=== PATIENT | female | born 2000 | race Two or more races ===

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

== ENCOUNTER 2025-02-13 11:08 | Outpatient (CLI) | payer OTHER ==
[~2025-02-13 11:08] MED LIST changes: +LEVETIRACETAM500 MG PO
== END 2025-02-13 11:09 | disposition home or self-care (01) ==
LOC: PRENATAL 11:08
PROVIDERS: ATTEND Obstetrics & Gynecology Maternal & Fetal Medicine
DX: O44.00 Complete placenta previa NOS or without hemorrhage, unspecified trimester (principal); O34.219 Maternal care for unspecified type scar from previous cesarean delivery; Z3A.19 19 weeks gestation of pregnancy

== ENCOUNTER 2025-02-15 22:02 | Emergency (ER) | payer OTHER ==
[~2025-02-15] VITALS: Ht 154.9 cm; Wt 77.1 kg
[2025-02-15] MEDS ORDERED: KEPPRA750 MG (22:09)
[2025-02-15 23:30] LABS: HEMATOCRIT 34.9 % (36.0-45.00); HEMOGLOBIN 12.1 g/dL (12.0-15.00); MEAN CELL VOLUME 88.4 fL (80.00-100.00); MEAN CORPUSCULAR HEMOGLOBIN 30.6 pg (27.00-32.0); MEAN CORPUSCULAR HGB CONC 34.7 g/dl (32.0-36.0); PLATELET COUNT 247 K/uL (150-450); RED BLOOD COUNT 3.95 M/uL (4.00-6.00); RED CELL DISTRIBUTION WIDTH 13.6 % (11.5-14.5)
[2025-02-15 23:50] LABS: CALCIUM 9.2 mg/dL (8.5-10.1); CREATININE SERUM 0.48 mg/dL (0.55-1.02); GFR 158.89; POTASSIUM 3.86 mEq/L (3.5-5.1)
[2025-02-16 00:27] LABS: PH,URINE 6.5 (5.0-8.0); URINE APPEARANCE Cloudy; URINE BILIRRUBIN Negative (NEGATIVE); URINE BLOOD Negative; URINE COLOR Yellow; URINE GLUCOSE Negative (NEGATIVE); URINE KETONE Trace (NEGATIVE); URINE LEUKOCYTE Moderate; URINE NITRATE Positive; URINE PROTEIN Negative (NEGATIVE)
[2025-02-16 00:31] LABS: URINE CAST 2.79 uL (0.0-1.40); URINE EPITHELIAL CELLS 26.4 uL (0.0-38.8); URINE RBC 10.9 uL (0.0-20.8); URINE WBC 309.8 uL (0.0-23.2)
[2025-02-16 01:13] LABS: URINE BACTERIA > 9821.5 uL (0.0-1933)
== END 2025-02-16 01:27 | disposition home or self-care (01) ==
LOC: ER 22:03
PROVIDERS: Emergency Medicine
DX: Z34.90 Encounter for supervision of normal pregnancy, unspecified, unspecified trimester (principal); R53.81 Other malaise; B82.9 Intestinal parasitism, unspecified

== ENCOUNTER 2025-03-26 20:17 | Emergency (ER) | payer OTHER ==
[~2025-03-26] VITALS: Ht 154.9 cm; Wt 76.7 kg
[~2025-03-26 20:17] MED LIST changes: +KEPPRA750 MG
[2025-03-26] MEDS ORDERED: METOCLOPRAMIDE HCL 5 MG/ML VIAL IM STA (23:29)
[2025-03-26] MEDS ORDERED: 0.9 % SODIUM CHLORIDE 1,000 ML IV STA (23:30)
[2025-03-26] MEDS ORDERED: FAMOtidine 10 MG/ML (4ML VIAL) IV PUSH STA (23:31)
[2025-03-26] MEDS ORDERED: METOCLOPRAMIDE HCL 5 MG/ML VIAL ONE (23:41)
[2025-03-26] MEDS ORDERED: FAMOTIDINE/PF 20 MG/2 ML VIAL ONE (23:41)
[2025-03-27 00:11] LABS: BASO % 0.4 % (0.1-1.2); EOS # 0.17 (0.04-0.54); EOS % 1.6 % (0.7-7.0); HEMATOCRIT 33.9 % (34.1-44.9); HEMOGLOBIN 11.4 g/dL (11.2-15.7); LYMPH # 2.73 (1.18-3.74); LYMPH % 25.8 % (19.3-53.1); MEAN CORPUSCULAR HEMOGLOBIN 29.7 pg (25.6-32.2); MONO # 0.53 (0.24-0.82); NEUT # 6.99 (1.56-6.13); NEUT % 66.2 % (34.0-71.1); PLATELET COUNT 278 K/uL (163-369); RED BLOOD COUNT 3.84 M/uL (3.93-5.22); RED CELL DISTRIBUTION WIDTH 13.3 % (11.6-14.4)
[2025-03-27 00:58] LABS: ALBUMIN 2.9 gm/dL (3.4-5.0); BILIRUBIN TOTAL 0.42 mg/dL (0.3-1.2); CALCIUM 8.8 mg/dL (8.5-10.1); CREATININE SERUM 0.57 mg/dL (0.55-1.02); GFR 130.31; GLOBULINA 4.4 G/DL (2.4-3.5); POTASSIUM 3.81 mEq/L (3.5-5.1); TOTAL PROTEIN 7.3 gm/dL (6.4-8.2)
[2025-03-27] MEDS ORDERED: ONDANSETRON ODT8 MG PO (02:09)
[2025-03-27] MEDS ORDERED: PEPCID40 MG PO (02:09)
== END 2025-03-27 02:18 ==
LOC: ER 20:36
DX: K29.70 Gastritis, unspecified, without bleeding (principal)

== ENCOUNTER 2025-03-29 01:17 | Emergency (ER) | payer OTHER ==
[~2025-03-29] VITALS: Ht 154.9 cm; Wt 77.6 kg
[~2025-03-29 01:17] MED LIST changes: +ONDANSETRON ODT8 MG PO; +PEPCID40 MG PO
[2025-03-29] MEDS ORDERED: RINGERS SOLUTION,LACTATED 1,000 ML IV STA (02:06)
[2025-03-29] MEDS ORDERED: FAMOtidine 10 MG/ML (4ML VIAL) IV PUSH STA (02:08)
[2025-03-29] MEDS ORDERED: METOCLOPRAMIDE HCL 5 MG/ML VIAL IM STA (02:08)
[2025-03-29 02:59] LABS: BASO % 0.3 % (0.1-1.2); EOS # 0.12 (0.04-0.54); EOS % 1.2 % (0.7-7.0); HEMATOCRIT 31.8 % (34.1-44.9); HEMOGLOBIN 10.8 g/dL (11.2-15.7); LYMPH # 2.16 (1.18-3.74); LYMPH % 21.8 % (19.3-53.1); MEAN CORPUSCULAR HEMOGLOBIN 29.6 pg (25.6-32.2); MONO # 0.65 (0.24-0.82); MONO % 6.6 % (4.7-12.5); NEUT % 68.6 % (34.0-71.1); PLATELET COUNT 251 K/uL (163-369); RED BLOOD COUNT 3.65 M/uL (3.93-5.22); RED CELL DISTRIBUTION WIDTH 13.2 % (11.6-14.4)
[2025-03-29 03:22] LABS: ALBUMIN 2.7 gm/dL (3.4-5.0); BILIRUBIN TOTAL 0.38 mg/dL (0.3-1.2); CALCIUM 8.7 mg/dL (8.5-10.1); CREATININE SERUM 0.53 mg/dL (0.55-1.02); GFR 141.72; GLOBULINA 4.3 G/DL (2.4-3.5); POTASSIUM 3.93 mEq/L (3.5-5.1)
== END 2025-03-29 05:45 | disposition home or self-care (01) ==
LOC: ER 01:24
DX: Z34.90 Encounter for supervision of normal pregnancy, unspecified, unspecified trimester (principal); Z3A.26 26 weeks gestation of pregnancy; R11.10 Vomiting, unspecified

== ENCOUNTER 2025-04-11 07:26 | Outpatient (CLI) | payer OTHER | END 2025-04-11 07:27 | disposition home or self-care (01) | LOC: PRENATAL 07:26 | PROVIDERS: ATTEND Obstetrics & Gynecology Maternal & Fetal Medicine | DX: O26.849 Uterine size-date discrepancy, unspecified trimester (principal); O34.219 Maternal care for unspecified type scar from previous cesarean delivery; O99.019 Anemia complicating pregnancy, unspecified trimester; Z3A.28 28 weeks gestation of pregnancy ==

== ENCOUNTER 2025-05-21 19:40 | Outpatient (CLI) | payer OTHER ==
[2025-05-21 18:11] VITALS: BP 110/72
[2025-05-21 18:41] VITALS: BP 110/72
[~2025-05-21 19:40] MED LIST changes: -KEPPRA1000 MG PO; -KEPPRA500 MG PO; -PEPCID AC20 MG PO; -PROTONIX40 MG PO
[2025-05-21] MEDS ORDERED: RINGERS SOLUTION,LACTATED 1,000 ML IV SCH (19:45)
[2025-05-21] MEDS ORDERED: KEPPRA500 MG PO ×2 (19:47)
[2025-05-21] MEDS ORDERED: PROTONIX40 MG PO (19:47)
[2025-05-21] MEDS ORDERED: PEPCID AC20 MG PO (19:48)
[2025-05-21] MEDS ORDERED: FAMOTIDINE/PF 20 MG/2 ML VIAL IV PRN (20:00)
[2025-05-21 20:12] LABS: URINE APPEARANCE Turbid; URINE BILIRRUBIN Negative (NEGATIVE); URINE BLOOD Large; URINE COLOR Dark Yellow; URINE GLUCOSE Negative (NEGATIVE); URINE KETONE Negative (NEGATIVE); URINE LEUKOCYTE Large; URINE NITRATE Positive; URINE PROTEIN 30 (NEGATIVE); URINE UROBILINOGEN 1.0 E.U./dl
[2025-05-21 20:15] LABS: URINE CAST 3.63 uL (0.0-1.40); URINE EPITHELIAL CELLS 142.7 uL (0.0-38.8); URINE RBC 9209.3 uL (0.0-20.8); URINE WBC 879.9 uL (0.0-23.2)
[2025-05-21 20:18] LABS: BASO % 0.2 % (0.1-1.2); EOS # 0.12 (0.04-0.54); EOS % 1.4 % (0.7-7.0); LYMPH # 2.15 (1.18-3.74); LYMPH % 25.8 % (19.3-53.1); MEAN PLATELET VOLUME 10.00 fl (9.4-12.4); MONO # 0.43 (0.24-0.82); MONO % 5.2 % (4.7-12.5); NEUT # 5.47 (1.56-6.13); NEUT % 65.6 % (34.0-71.1); RED CELL DISTRIBUTION WIDTH 13.2 % (11.6-14.4)
[2025-05-21 20:36] LABS: URINE BACTERIA > 9821.5 uL (0.0-1933); URINE TRICHOMONAS MODERATE
[2025-05-21] MEDS ORDERED: LevETIRAcetam 500 MG TAB. PO SCH ×2 (21:00)
[2025-05-21] MEDS ORDERED: CEFAZOLIN SODIUM 1,000 MG VIAL IV SCH (21:22)
[2025-05-21 23:15] VITALS: BP 117/72
[2025-05-22 04:08] VITALS: BP 116/72
[2025-05-22 06:13] VITALS: BP 96/59; O2SAT 97
[2025-05-22] MEDS ORDERED: SOD FERRIC GLUC COMPLX/SUCROSE 125 MG in 0.9 % SODIUM CHLORIDE 100 ML IV SCH (09:55)
[2025-05-22 11:09] VITALS: BP 96/58
[2025-05-22] MEDS ORDERED: SOD FERRIC GLUC COMPLX/SUCROSE 62.5 MG/5 ML AMPUL IV ONE (12:45)
[2025-05-22 13:56] VITALS: BP 96/58
[2025-05-22] MEDS ORDERED: KEPPRA 750 MG PO SCH (21:00)
[2025-05-26] MEDS ORDERED: KEPPRA1000 MG PO ×2 (13:04)
== END 2025-05-22 14:07 | disposition home or self-care (01) ==
LOC: OBS/DEL 19:40
PROVIDERS: ATTEND Obstetrics & Gynecology
DX: O46.93 Antepartum hemorrhage, unspecified, third trimester (principal); R10.9 Unspecified abdominal pain; Z3A.36 36 weeks gestation of pregnancy

== ENCOUNTER → 2025-05-21 | Emergency (ER) | payer OTHER ==
[~2025-05-21] VITALS: Ht 154.9 cm; Wt 79.8 kg
[~2025-05-21] MED LIST changes: +KEPPRA1000 MG PO; +KEPPRA500 MG PO; +PEPCID AC20 MG PO; +PROTONIX40 MG PO
== END | disposition left against medical advice (07) ==
LOC: ER 17:28
DX: Z53.21 Procedure and treatment not carried out due to patient leaving prior to being seen by health care provider (principal)

== ENCOUNTER 2025-06-06 16:51 | Emergency (ER) | payer OTHER ==
[~2025-06-06] VITALS: Ht 154.9 cm; Wt 81.6 kg
[~2025-06-06 16:51] MED LIST changes: +KEPPRA1000 MG PO; +KEPPRA500 MG PO; +PEPCID AC20 MG PO; +PROTONIX40 MG PO
[2025-06-06] MEDS ORDERED: ONDANSETRON HCL 2 MG/ML VIAL ONE (17:21)
[2025-06-06] MEDS ORDERED: 0.9 % SODIUM CHLORIDE 1,000 ML IV STA (17:21)
[2025-06-06] MEDS ORDERED: ONDANSETRON HCL 2 MG/ML VIAL IV STA (17:21)
[2025-06-06 17:49] LABS: BASO % 0.4 % (0.1-1.2); EOS # 0.04 (0.04-0.54); EOS % 0.5 % (0.7-7.0); LYMPH # 1.97 (1.18-3.74); LYMPH % 25.1 % (19.3-53.1); MEAN PLATELET VOLUME 9.90 fl (9.4-12.4); MONO # 0.36 (0.24-0.82); MONO % 4.6 % (4.7-12.5); NEUT # 5.38 (1.56-6.13); NEUT % 68.5 % (34.0-71.1); RED CELL DISTRIBUTION WIDTH 14.1 % (11.6-14.4)
[2025-06-06 17:55] LABS: URINE APPEARANCE Cloudy; URINE BACTERIA 7390.5 uL (0.0-1933); URINE BILIRRUBIN Negative (NEGATIVE); URINE COLOR Dark Yellow; URINE EPITHELIAL CELLS 58.3 uL (0.0-38.8); URINE GLUCOSE Negative (NEGATIVE); URINE LEUKOCYTE Large; URINE NITRATE Positive; URINE PROTEIN Trace (NEGATIVE); URINE RBC 7.3 uL (0.0-20.8); URINE UROBILINOGEN 1.0 E.U./dl; URINE WBC 404.4 uL (0.0-23.2)
[2025-06-06 18:08] LABS: BUN CREA RATIO 16.0 (7.0-25.0); CREATININE SERUM 0.55 mg/dL (0.55-1.02); GFR 135.79; GLUCOSE FASTING 72.0 mg/dL (65-100); OSMOLALITY SERUM 277.0 MOSM/KG (275-295)
[2025-06-06 18:18] LABS: URINE CAST 0.87 uL (0.0-1.40); URINE KETONE >=160 (NEGATIVE)
[2025-06-06 18:19] LABS: URINE BLOOD Trace; URINE MUCUS MODERATE
[2025-06-06 18:20] LABS: TYPE CELLS SQUAMOUS
[2025-06-06] MEDS ORDERED: FAMOTIDINE/PF 20 MG in 0.9 % SODIUM CHLORIDE 8 ML IV PUSH STA (21:29)
[2025-06-06] MEDS ORDERED: FAMOTIDINE/PF 20 MG/2 ML VIAL ONE (21:29)
== END 2025-06-06 21:39 | disposition home or self-care (01) ==
LOC: ER 16:51
PROVIDERS: Emergency Medicine
DX: O21.9 Vomiting of pregnancy, unspecified (principal); O23.43 Unspecified infection of urinary tract in pregnancy, third trimester; N39.0 Urinary tract infection, site not specified; Z3A.37 37 weeks gestation of pregnancy

== ENCOUNTER 2025-06-10 14:09 | Outpatient (CLI) | payer OTHER | END 2025-06-10 14:10 | disposition home or self-care (01) | LOC: PRENATAL 14:09 | PROVIDERS: ATTEND Obstetrics & Gynecology Maternal & Fetal Medicine | DX: O26.849 Uterine size-date discrepancy, unspecified trimester (principal); O36.8199 Decreased fetal movements, unspecified trimester, other fetus; O34.219 Maternal care for unspecified type scar from previous cesarean delivery; Z3A.36 36 weeks gestation of pregnancy ==

== ENCOUNTER 2025-06-18 21:41 | Inpatient (IN) | payer OTHER ==
[2025-06-17 23:56] VITALS: BP 115/74
[~2025-06-18] VITALS: Ht 154.9 cm; Wt 2.7 kg
[2025-06-18 21:28] VITALS: BP 112/74
[2025-06-18] MEDS ORDERED: RINGERS SOLUTION,LACTATED 1,000 ML IV SCH (22:30)
[2025-06-18 22:41] LABS: URINE APPEARANCE Clear; URINE BACTERIA 3943.9 uL (0.0-1933); URINE BILIRRUBIN Negative (NEGATIVE); URINE BLOOD Negative; URINE COLOR Yellow; URINE EPITHELIAL CELLS 25.3 uL (0.0-38.8); URINE GLUCOSE Negative (NEGATIVE); URINE KETONE Negative (NEGATIVE); URINE LEUKOCYTE Large; URINE NITRATE Positive; URINE PROTEIN Negative (NEGATIVE); URINE UROBILINOGEN 0.2 E.U./dl; URINE WBC 332.9 uL (0.0-23.2)
[2025-06-18 22:44] LABS: URINE CAST 0.14 uL (0.0-1.40); URINE RBC 1.9 uL (0.0-20.8)
[2025-06-18] MEDS ORDERED: ZOFRAN8 MG (22:50)
[2025-06-18 23:14] LABS: BASO % 0.3 % (0.1-1.2); EOS # 0.08 (0.04-0.54); EOS % 0.8 % (0.7-7.0); LYMPH # 2.44 (1.18-3.74); LYMPH % 25.7 % (19.3-53.1); MEAN PLATELET VOLUME 11.30 fl (9.4-12.4); MONO # 0.51 (0.24-0.82); MONO % 5.4 % (4.7-12.5); NEUT # 6.28 (1.56-6.13); NEUT % 66.3 % (34.0-71.1); RED CELL DISTRIBUTION WIDTH 14.2 % (11.6-14.4)
[2025-06-18 23:29] LABS: INR 0.96
[2025-06-18 23:32] VITALS: BP 115/74
[2025-06-18] MEDS ORDERED: CEFAZOLIN SODIUM 1,000 MG VIAL ONE (23:55)
[2025-06-18 23:56] VITALS: BP 112/74
[2025-06-19] MEDS ORDERED: ERYTHROMYCIN BASE OPHT 1GM EACH TUBE OP ONE (00:05)
[2025-06-19] MEDS ORDERED: OXYTOCIN 10 UNITS/ML VIAL ONE (00:05)
[2025-06-19 00:44] LABS: ALT/SGPT 13.0 U/L (12-78); AST/SGOT 12.0 U/L (15-37); BILIRUBIN TOTAL 0.52 mg/dL (0.3-1.2); BUN CREA RATIO 14.0 (7.0-25.0); CREATININE SERUM 0.44 mg/dL (0.55-1.02); GFR 175.68; GLOBULINA 3.4 G/DL (2.4-3.5); GLUCOSE FASTING 72.0 mg/dL (65-100); OSMOLALITY SERUM 272.0 MOSM/KG (275-295)
[2025-06-19] MEDS ORDERED: CEFAZOLIN SODIUM 1,000 MG VIAL IV SCH (00:45)
[2025-06-19] MEDS ORDERED: KETOROLAC TROMETHAMINE 60 MG VIAL IM STA (02:16)
[2025-06-19] MEDS ORDERED: OXYTOCIN 1,000 ML IV SCH (02:30)
[2025-06-19] MEDS ORDERED: CHLORHEXIDINE GLUCONATE 120 ML BOTTLE TOP ONE (02:30)
[2025-06-19] MEDS ORDERED: MORPHINE SULFATE 4 MG/ML VIAL IV PRN (02:30)
[2025-06-19] MEDS ORDERED: RINGERS SOLUTION,LACTATED 1,000 ML IV SCH (02:30)
[2025-06-19 04:30] VITALS: BP 111/74
[2025-06-19 06:13] LABS: BASO % 0.4 % (0.1-1.2); EOS # 0.07 (0.04-0.54); EOS % 0.6 % (0.7-7.0); LYMPH # 2.52 (1.18-3.74); LYMPH % 22.2 % (19.3-53.1); MEAN PLATELET VOLUME 10.10 fl (9.4-12.4); MONO # 0.51 (0.24-0.82); MONO % 4.5 % (4.7-12.5); NEUT # 8.13 (1.56-6.13); NEUT % 71.4 % (34.0-71.1); RED CELL DISTRIBUTION WIDTH 14.4 % (11.6-14.4)
[2025-06-19] MEDS ORDERED: OxyCODONE HCL 5 MG TABLET (ROXICODONE) PO PRN (09:00)
[2025-06-19] MEDS ORDERED: ACETAMINOPHEN 325 MG TABLET PO PRN (09:00)
[2025-06-19 09:28] VITALS: BP 113/72
[2025-06-19 16:07] VITALS: BP 112/75
[2025-06-20 00:30] VITALS: BP 111/70
[2025-06-20 08:53] VITALS: BP 109/75
[2025-06-20 16:24] VITALS: BP 115/77
[2025-06-21 00:05] VITALS: BP 116/78
[2025-06-21 04:00] VITALS: BP 118/74
[2025-06-21 08:02] VITALS: BP 106/69
== END 2025-06-21 12:23 | disposition home or self-care (01) | DRG 788 ==
LOC: OBS/DEL 21:41 → LDR 06-19 00:01 → OB/GYN 06-19 00:01
PROVIDERS: ADMIT Obstetrics & Gynecology; ATTEND Obstetrics & Gynecology
PROC: 4A1HXCZ Monitoring of Products of Conception, Cardiac Rate, External Approach (ICD-10-PCS; 2025-06-19)
PROC: 10D00Z1 Extraction of Products of Conception, Low, Open Approach (ICD-10-PCS; principal; 2025-06-19 07:00)
DX: O34.211 Maternal care for low transverse scar from previous cesarean delivery (principal); Z3A.38 38 weeks gestation of pregnancy; Z37.0 Single live birth